=== PATIENT | female | born 1960 | race Hispanic/Latino ===

== ENCOUNTER 2018-04-29 13:39 | Emergency (ER) | payer OTHER ==
[2018-04-29 13:39] VITALS: BMI 22.4
[2018-04-29 13:49] VITALS: TEMP 98.4
[2018-04-29] MEDS ORDERED: Lidocaine 1% w Epi 1:100,000 Inj IJ STA (13:59)
[2018-04-29] MEDS ORDERED: TDAP Vaccine 0.5 mL Syr IM ONE (14:00)
--- NOTE | 2018-04-29 14:02 | ED PDOC ---
Arrival/HPI - General Historian: Patient <Keny Bryson A - Last Filed: 04/29/18 14:31> <Emma Johnson - Last Filed: 04/29/18 19:40> - General Chief Complaint: Abnormal Skin Integrity Time Seen by Provider: 04/29/18 13:45 - History of Present Illness Narrative History of Present Illness (Text): 04/29/18 14:00 57yo female with no pmhx who present to ED with laceration to her right hand. 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 Denies pain to the area. Not up to date with TD vaccine. Denies any other complaint. (Keny Bryson A) Past Medical History - Provider Review Nursing Documentation Reviewed: Yes - Tetanus Immunization Tetanus Immunization: Unknown - Past Medical History Past Medical History: No Previous - Cardiac Hx Cardiac Disorders: No - Pulmonary Hx Respiratory Disorders: No - Neurological Hx Neurological Disorder: No - HEENT Hx HEENT Disorder: No - Renal Hx Renal Disorder: No - Endocrine/Metabolic Hx Endocrine Disorders: No - Hematological/Oncological Hx Blood Disorders: No - Integumentary Hx Dermatological Disorder: No - Musculoskeletal/Rheumatological Hx Musculoskeletal Disorders: No - Gastrointestinal Hx Gastrointestinal Disorders: No - Genitourinary/Gynecological Hx Genitourinary Disorders: No - Psychiatric Hx Psychophysiologic Disorder: Yes Hx Anxiety: Yes Hx Substance Use: No - Surgical History Other/Comment: Hernia. ECTOPIC - Suicidal Assessment Feels Threatened In Home Enviroment: No <Keny Bryson A - Last Filed: 04/29/18 14:31> Family/Social History - Physician Review Nursing Documentation Reviewed: Yes Family/Social History: Unknown Family HX Smoking Status: Never Smoked Hx Alcohol Use: Yes Frequency of alcohol use: Socially Hx Substance Use: No Hx Substance Use Treatment: No <Keny Bryson A - Last Filed: 04/29/18 14:31> Allergies/Home Meds <Keny Bryson A - Last Filed: 04/29/18 14:31> <Emma Johnson - Last Filed: 04/29/18 19:40> Allergies/Adverse Reactions: Allergies No Known Allergies Allergy (Verified 04/29/18 13:42) Home Medications: Home Meds Medication Instructions Recorded Confirmed Alprazolam [Xanax] 0.25 mg PO Q8 PRN 01/30/13 04/29/18 Zolpidem Tartrate [Ambien] 10 mg PO HS 08/11/14 04/29/18 Review of Systems - Physician Review All systems were reviewed & negative as marked: Yes - Review of Systems Constitutional: Normal Eyes: Normal ENT: Normal Respiratory: Normal Cardiovascular: Normal Gastrointestinal: Normal Genitourinary Female: Normal Musculoskeletal: Normal Skin: Laceration (right hand) Neurological: Normal Endocrine: Normal Hemo/Lymphatic: Normal Psychiatric: Normal <Diru,Happiness A - Last Filed: 04/29/18 14:31> Physical Exam Vital Signs Reviewed: Yes Temperature: Afebrile Blood Pressure: Normal Pulse: Regular Respiratory Rate: Normal Appearance: Positive for: Well-Appearing, Non-Toxic, Comfortable Pain Distress: None Mental Status: Positive for: Alert and Oriented X 3 - Systems Exam Head: Present: Atraumatic, Normocephalic Pupils: Present: PERRL Extroacular Muscles: Present: EOMI Conjunctiva: Present: Normal Mouth: Present: Moist Mucous Membranes Neck: Present: Normal Range of Motion Respiratory/Chest: Present: Clear to Auscultation, Good Air Exchange. No: Respiratory Distress, Accessory Muscle Use Cardiovascular: Present: Regular Rate and Rhythm, Normal S1, S2. No: Murmurs Abdomen: No: Tenderness, Distention, Peritoneal Signs Back: Present: Normal Inspection Upper Extremity: Present: Normal Inspection. No: Cyanosis, Edema Lower Extremity: Present: Normal Inspection. No: Edema Neurological: Present: GCS=15, CN II-XII Intact, Speech Normal Skin: Present: Warm, Dry, Normal Color, Laceration (1.0cm curvilinear laceration to right volar hand). No: Rashes Psychiatric: Present: Alert, Oriented x 3, Normal Insight, Normal Concentration <Diru,Happiness A - Last Filed: 04/29/18 14:31> Vital Signs Temp Pulse Resp BP Pulse Ox 04/29/18 14:34 98.4 F 75 18 110/70 99 04/29/18 13:43 98.4 F 78 16 107/71 96 - Medication Orders Current Medication Orders: Discontinued Medications Acetaminophen (Tylenol 325mg Tab) 650 mg PO STAT STA Stop: 04/29/18 14:01 Last Admin: 04/29/18 14:20 Dose: 650 mg MAR Pain/Vitals Document 04/29/18 14:20 [place] (Rec: 04/29/18 14:23 [facility] Pain Reassessment Is This A Pain ReAssessment? No Sleep Is patient sleeping during reassessment? No Presence of Pain Presence of Pain Yes Pain Scale Used Pain Scale Used Numeric Location Left, Right or Bilateral Right Pain Location Body Site Hand Intensity 4 Scale Used Numeric Lidocaine/Epinephrine (Xylocaine 1% W Epi 1:100,000 Inj) 10 ml IJ STAT STA Stop: 04/29/18 14:00 Tetanus/Reduced Diphtheria/Acell Pertussis (Boostrix Vaccine Inj) 0.5 ml IM .ONCE ONE Stop: 04/29/18 14:01 Last Admin: 04/29/18 14:23 Dose: 0.5 ml [facility] Immunization Data Document 04/29/18 14:23 LA (Rec: 04/29/18 14:23 [place] [facility]) Immunization Data Vaccine Information Sheet Given Yes Immunization Registry Document 04/29/18 14:23 [place] (Rec: 04/29/18 14:23 [facility]) Immunization Registry Consent Date 04/29/18 Procedure: Wound Repair - Consent Obtained Consent obtained: Verbal - Performed by Performed by: Mid-level Provider - Indications Indication(s):: Laceration - Location Location:: Right, Hand Shape:: Curvilinear Dimensions Length cm: 1.0 - Anesthetic Technique Anesthetic Technique: Local - Debris Debris:: None - Irrigated Irrigated with ml of normal saline: 40 - Complexity Complexity:: Intermediate (2 layer) - Muscle repiar layer closed with Muscle repair layer closed with:: # (5), Size (5), Type (Vicryl), Technique ( interrupted), Wound well approximated, Abx ointment applied, Dressing applied, Tetanus ordered - Patient tolerated procedure Patient Tolerated Procedure:: Well <Keny Bryson - Last Filed: 04/29/18 14:31> - PA / [employer]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 <Emma Johnson - Last Filed: 04/29/18 19:40> Disposition/Present on Arrival - Present on Arrival Any Indicators Present on Arrival: No History of DVT/PE: No History of Uncontrolled Diabetes: No Urinary Catheter: No History of Decub. Ulcer: No History Surgical Site Infection Following: None - Disposition Have Diagnosis and Disposition been Completed?: Yes Disposition Time: 14:30 Patient Plan: Discharge <Keny Bryson - Last Filed: 04/29/18 14:31> <Emma Johnson - Last Filed: 04/29/18 19:40> - Disposition Diagnosis: Hand laceration Disposition: HOME/ ROUTINE Condition: STABLE Discharge Instructions (ExitCare): Laceration Repair, Wound Care (DC) Additional Instructions: Keep wound clean and dry follow up with your doctor in 10days for suture removal Return to ED for any fever, redness, purulent discharge Prescriptions: Cephalexin [cephalexin] 500 mg PO TID #21 cap Referrals: Beverley Adair MD [Staff Provider] - Follow up with primary Forms: [employer] (Belarusian)
[2018-04-29] MEDS ORDERED: LIDOCAIN/EPI 1-0.001% 10ML INJ SOL IJ ONE (14:10)
[2018-04-29 15:00] VITALS: BP 110/70; PULSE 75; RESP 18; O2SAT 99
== END 2018-04-29 14:34 | disposition home or self-care (01) ==
LOC: ED 13:39
DX: S61.411A Laceration without foreign body of right hand, initial encounter (principal); W25.XXXA Contact with sharp glass, initial encounter; Z23 Encounter for immunization

== ENCOUNTER 2018-05-07 20:32 | Emergency (ER) | payer OTHER ==
[2018-05-07 20:32] VITALS: BMI 22.4
[2018-05-07 20:59] VITALS: RESP 16; O2SAT 100
--- NOTE | 2018-05-07 21:26 | ED PDOC ---
Arrival/HPI - History of Present Illness Time/Duration: 1 week Symptom Course: Improving Severity Level: 1 Activities at Onset: Rest <Grayson Hartley - Last Filed: 05/07/18 21:30> <Ruddy Roy - Last Filed: 05/07/18 22:25> - General Chief Complaint: Suture/Staple Removal Time Seen by Provider: 05/07/18 21:19 - History of Present Illness Narrative History of Present Illness (Text): Patient presents with to ED for removal of sutures which she had placed ten days ago. Patient reports having stitches placed her in the ED on 04/29 while cutting her hand on broken glass one week ago. Pt denies experiencing any fevers, chills, numbness, paresthesias, or prurulent discharge. (Grayson Hartley ) Past Medical History - Infectious Disease Hx of Infectious Diseases: None - Tetanus Immunization Tetanus Immunization: Unknown - Reproductive Menopause: Yes - Past Medical History Past Medical History: No Previous - Cardiac Hx Cardiac Disorders: No - Pulmonary Hx Respiratory Disorders: No - Neurological Hx Neurological Disorder: No - HEENT Hx HEENT Disorder: No - Renal Hx Renal Disorder: No - Endocrine/Metabolic Hx Endocrine Disorders: No - Hematological/Oncological Hx Blood Disorders: No - Integumentary Hx Dermatological Disorder: No - Musculoskeletal/Rheumatological Hx Musculoskeletal Disorders: No - Gastrointestinal Hx Gastrointestinal Disorders: No - Genitourinary/Gynecological Hx Genitourinary Disorders: No - Psychiatric Hx Psychophysiologic Disorder: Yes Hx Anxiety: Yes Hx Substance Use: No - Surgical History Other/Comment: Hernia. ECTOPIC - Anesthesia Hx Anesthesia: No - Suicidal Assessment Feels Threatened In Home Enviroment: No <Grayson Hartley - Last Filed: 05/07/18 21:30> Family/Social History Family/Social History: No Known Family HX Smoking Status: Never Smoked Hx Alcohol Use: Yes Hx Substance Use: No Hx Substance Use Treatment: No <Grayson Hartley - Last Filed: 05/07/18 21:30> Allergies/Home Meds <Grayson Hartley - Last Filed: 05/07/18 21:30> <Ruddy Roy - Last Filed: 05/07/18 22:25> Allergies/Adverse Reactions: Allergies No Known Allergies Allergy (Verified 05/07/18 20:59) Home Medications: Home Meds Medication Instructions Recorded Confirmed Alprazolam [Xanax] 0.25 mg PO Q8 PRN 01/30/13 04/29/18 Zolpidem Tartrate [Ambien] 10 mg PO HS 08/11/14 04/29/18 Review of Systems - Review of Systems Constitutional: Normal. absent: Fatigue, Weight Change Eyes: Normal. absent: Vision Changes, Photophobia ENT: Normal. absent: Hearing Changes, Tinnitus Respiratory: Normal. absent: SOB, Cough Cardiovascular: Normal Gastrointestinal: Normal. absent: Abdominal Pain, Nausea, Vomiting Genitourinary Female: Normal. absent: Dysuria, Frequency Musculoskeletal: Normal. absent: Arthralgias, Back Pain Skin: Normal. absent: Rash, Pruritis Neurological: Normal. absent: Headache, Dizziness Endocrine: Normal. absent: Diaphoresis, Polyuria Hemo/Lymphatic: Normal. absent: Adenopathy, Easy Bleeding Psychiatric: Normal. absent: Anxiety, Depression <Grayson Hartley - Last Filed: 05/07/18 21:30> Physical Exam Temperature: Afebrile Blood Pressure: Normal Pulse: Regular Respiratory Rate: Normal Appearance: Positive for: Well-Appearing Pain Distress: None Mental Status: Positive for: Alert and Oriented X 3 - Systems Exam Head: Present: Atraumatic, Normocephalic Pupils: Present: PERRL Extroacular Muscles: Present: EOMI Conjunctiva: Present: Normal Mouth: Present: Moist Mucous Membranes Pharnyx: Present: Normal. No: ERYTHEMA, EXUDATE Nose (External): Present: Atraumatic Neck: Present: Normal Range of Motion Respiratory/Chest: Present: Clear to Auscultation, Good Air Exchange. No: Respiratory Distress, Accessory Muscle Use Cardiovascular: Present: Regular Rate and Rhythm, Normal S1, S2. No: Murmurs Abdomen: Present: Normal Bowel Sounds. No: Tenderness, Distention Back: Present: Normal Inspection. No: CVA Tenderness Upper Extremity: Present: Normal Inspection, Normal ROM, NORMAL PULSES, Other (+ well healed incision on dorsal R hand, sutures removed). No: Cyanosis, Edema, Tenderness, Swelling, Erythema Lower Extremity: Present: Normal Inspection, NORMAL PULSES. No: Edema Neurological: Present: GCS=15, CN II-XII Intact, Speech Normal Skin: Present: Warm, Dry, Normal Color. No: Rashes Psychiatric: Present: Alert, Oriented x 3 <Grayson Hartley - Last Filed: 05/07/18 21:30> Vital Signs Temp Pulse Resp BP Pulse Ox 05/07/18 20:55 98 F 64 16 113/56 L 100 Medical Decision Making <Grayson Hartley - Last Filed: 05/07/18 21:30> <Ruddy Roy - Last Filed: 05/07/18 22:25> ED Course and Treatment: 1) R hand injury * Sutures removed 05/07/18 21:35 (Grayson Hartley) Impression: Pt seen and evaluated with medical practice administrator. Aware and agree with HPI, clinical findings, plan, and management. Pt presented for right hand suture removal. Plan: -- Suture removal -- Reassess and disposition Sutures removed by medical practice administrator under my supervision without difficulty. No complications, pt tolerated procedure well. (Ruddy Roy) - Procedure PROCEDURE NOTE (Text): 1) Suture removal, dorsal R hand * Sutures removed without complication * No erythema, prurulent discharge present * Patient denies any fevers or chills * Pt instructed to return if any signs of infection including fevers or purulent discharge 05/07/18 21:36 (Grayson Hartley) - PA / RESIDENTIAL INSTRUCTOR / Resident Statement / has reviewed & agrees with the documentation as recorded. / has examined the patient and agrees with the treatment plan. <Ruddy Roy - Last Filed: 05/07/18 22:25> Disposition/Present on Arrival - Present on Arrival Any Indicators Present on Arrival: No History of DVT/PE: No History of Uncontrolled Diabetes: No Urinary Catheter: No History of Decub. Ulcer: No History Surgical Site Infection Following: None - Disposition Have Diagnosis and Disposition been Completed?: Yes Patient Plan: Discharge <Grayson Hartley - Last Filed: 05/07/18 21:30> <Ruddy Roy - Last Filed: 05/07/18 22:25> - Disposition Diagnosis: Visit for suture removal Disposition: HOME/ ROUTINE Patient Problems: Current Active Problems Problem Status Onset Visit for suture removal Acute Condition: GOOD Discharge Instructions (ExitCare): Stitches Removal Additional Instructions: MAURICE MULLINS, thank you for letting us take care of you today. Your provider was Ruddy Roy MD and you were treated for removal of stitches. The emergency medical care you received today was directed at your acute symptoms. If you were prescribed any medication, please fill it and take as directed. It may take several days for your symptoms to resolve. Return to the Emergency Department if your symptoms worsen, do not improve, or if you have any other problems. Please contact your doctor or call one of the physicians/clinics you have been referred to that are listed on the Patient Visit Information form that is included in your discharge packet. Bring any paperwork you were given at discharge with you along with any medications you are taking to your follow up visit. Our treatment cannot replace ongoing medical care by a primary care provider outside of the emergency department. Thank you for allowing the [facility] team to be part of your care today. If you had an X-Ray or CT scan: A Radiologist will review the ED reading if any change in treatment is needed we will contact you. If you had a blood, urine, or wound culture: It will take several days for the results, if any change in treatment is needed we will contact you. If you had an STI test: It will take 48 hours for the results. Please call after 1 week if you have not heard back. Referrals: Kelli Velez MD [Primary Care Provider] - Follow up with primary Forms: [employer] (Spanish)
[2018-05-07 22:36] VITALS: BP 115/65; PULSE 66; TEMP 98.1
== END 2018-05-07 21:50 | disposition home or self-care (01) ==
LOC: ED 20:32
DX: Z48.02 Encounter for removal of sutures (principal)